=== PATIENT | male | born 1990 | race African-American/Black ===

== ENCOUNTER 2016-10-19 05:30 | Emergency (ER) | payer MEDICAID ==
[2016-10-19 05:41] VITALS: RESP 16; TEMP 98.2
[2016-10-19] MEDS ORDERED: IPRATROPIUM/ALBUTEROL 3 ML DEYVIAL ONE (05:46)
[2016-10-19] MEDS ORDERED: IPRATROPIUM/ALBUTEROL 3 ML DEYVIAL IH ONE (05:47)
[2016-10-19] MEDS ORDERED: ALBUTEROL INH PREPACK MDI TAKEHOME ONE (06:35)
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
[2016-10-19 06:52] VITALS: BP 131/83; PULSE 100; O2SAT 92
== END 2016-10-19 07:07 | disposition home or self-care (01) ==
LOC: EDUNIT#
DX: J45.909 Unspecified asthma, uncomplicated (principal); F17.200 Nicotine dependence, unspecified, uncomplicated

== ENCOUNTER 2016-11-01 17:44 | Inpatient (IN) | payer MEDICAID ==
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
[2016-11-01] MEDS ORDERED: ALBUTEROL 3 ML DEYVIAL IH ONE ×2 (18:12→20:49)
[2016-11-01] MEDS ORDERED: methylPREDNISolone SOD SUCC 125 MG/2 ML VIAL IVP ONE (18:12)
[2016-11-01] MEDS ORDERED: IPRATROPIUM/ALBUTEROL 3 ML DEYVIAL IH ONE (18:12)
--- NOTE | 2016-11-01 19:52 | CPEKG ---
Heart Rate: 92 RR Interval: 652 P-R Interval: 164 QRSD Interval: 104 QT Interval: 408 QTC Interval: 505 P Afton: 117 QRS A[place]on: 89 T Wave A[place]on: 47 EKG Severity - ABNORMAL ECG - EKG Impression: SINUS RHYTHM EKG Impression: PROLONGED QT INTERVAL Electronically Signed By: Hayden Kapoor 01-Nov-2016 20:21:48
[2016-11-01 21:02] LABS: % IMMATURE GRANULYOCYTES 0.2 % (0.0-1.1); ABSOLUTE IMMATURE GRANULOCYTES 0.02 10^3/uL (0.00-0.10); ADD DIFF? NO; ADD MORPH? NO; ADD SCAN? NO; ATYPICAL LYMPHOCYTE FLAG 20 (0-99); FRAGMENT RBC FLAG 0 (0-99); HEMOGLOBIN 16.8 g/dL (13.7-17.5); LEFT SHIFT FLG 10 (0-99); LIPEMIA HEMOLYSIS FLAG 90 (0-99); MEAN CELL HEMOGLOBIN 30.3 pg (27.9-34.1); MEAN CELL HEMOGLOBIN CONCENTR. 34.3 g/dL (32.4-36.7); MEAN CELL VOLUME 88.3 fL (81.5-99.8); MEAN PLATELET VOLUME 9.9 fL (8.7-11.7); PLATELET CLUMPS FLAG 0 (0-99); PLATELET COUNT 310 10^3/uL (150-400); RED BLOOD CELL COUNT 5.55 10^6/uL (4.40-6.38); RED CELL DISTRIBUTION WIDTH 12.6 % (11.5-15.2)
[2016-11-01 21:07] LABS: ANION GAP 13 mEq/L (8-16); CALCIUM 9.3 mg/dL (8.5-10.4); CARBON DIOXIDE 22 mEq/l (22-31); CHLORIDE 99 mEq/L (97-110); GLOMERULAR FILTRATION RATE > 60; GLUCOSE 85 mg/dL (70-100); POTASSIUM 4.1 mEq/L (3.5-5.2); SODIUM 134 mEq/L (134-144)
[2016-11-01] MEDS ORDERED: ONDANSETRON 4 MG/2 ML VIAL IVP PRN (21:24)
[2016-11-01] MEDS ORDERED: ACETAMINOPHEN 325 MG TAB PO PRN (21:24)
[2016-11-01] MEDS ORDERED: ONDANSETRON DISINTEGRATING 4 MG TAB PO PRN (21:24)
[2016-11-01] MEDS ORDERED: ALBUTEROL 3 ML DEYVIAL IH PRN (21:24)
--- NOTE | 2016-11-01 22:07 | GHP ---
[f rep st] HISTORY AND PHYSICAL DATE OF ADMISSION: 11/01/2016 CHIEF COMPLAINT: Shortness of breath. HISTORY OF PRESENT ILLNESS: This is a 26-year-old male, with no significant past medical history, w ho presented initially to the emergency department 10/19/2016, with complaints of shortness of breat h, was worked up for viral URI, discharged with prednisone and albuterol MDI. Patient did not fill the prednisone script, but did use the MDI. He reports over the course of the last 2 weeks progress ing shortness of breath with exertion to the point that he was only able to take a couple of steps t sherly without feeling winded. Does endorse a very productive cough, which has remained stable, and i s productive of sputum, but slightly yellow. Patient denies any subjective fevers or chills or know n sick contacts. Does report some myalgias in his lower extremities. Denies any nausea or vomiting , but has had anorexia. Denies diarrhea, dysuria, hematuria, or lower extremity edema. PAST MEDICAL HISTORY: 1. Polysubstance abuse, including heroin, marijuana, and alcohol. 2. Tobacco abuse. SOCIAL HISTORY: Patient is smokes marijuana throughout the day. Reports smoking on average 5-6 cig arettes a day. FAMILY HISTORY: Positive for alcoholism. REVIEW OF SYSTEMS: A 10-point review of systems is negative with the exception of that reported in the HPI. PHYSICAL EXAMINATION: VITAL SIGNS: Blood pressure 131/86, heart rate 103, respiratory rate 20, 86% on room air, 36.5. GENERAL: This is a healthy-appearing young male, in mild distress. HEENT: No table for dry mucous membranes. Eyes: Negative for any icterus. CARDIAC: Patient is tachycardic, but regular. PULMONARY: He is diffusely wheezy on anterior and posterior auscultation. GASTROINT ESTINAL: Positive bowel sounds. ABDOMEN: Soft and nontender. MUSCULOSKELETAL: Negative for any lower extremity edema. SKIN: Negative for any rashes. NEUROLOGIC: Patient is alert and oriented x3. PSYCHIATRIC: He is pleasant and cooperative on interview and examination. DATA: White count 8.3. Sodium 135, creatinine 105. Chest x-ray, which I personally reviewed and i nterpreted, shows what Radiology describes as resolving streaky opacities consistent with airways di sease. ASSESSMENT AND PLAN: This is a 26-year-old male, presenting with shortness of breath. 1. Acute asthma exacerbation. Suspect likely a viral trigger, as patient does not have a lobular i nfiltrate on chest x-ray, leukocytosis, or fever. We will treat with inhaled albuterol, schedule Du oNebs and steroids. Optimistic the patient will turn the corner overnight. Will not treat at this time empirically with antibiotics. Have sent influenza. Will follow patient's clinical status. 2. Polysubstance abuse. The patient is still actively using consistent marijuana; however, denies other illicit drugs at this time. 3. Tobacco abuse. I did group therapy counselor the patient at length regarding the importance of abstinence from tobacco. 4. Prophylaxis. Patient is ambulating. DIET: Regular. DISPOSITION: I expect in less than 2 midnights if the patient responds well to conservative therapy and supportive care. I discussed the case with the emergency room physician. Patient will be tria ged to a medical-surgical floor for care. /[id number]/MODL
[2016-11-02 05:23] LABS: ANION GAP 14 mEq/L (8-16); CALCIUM 9.5 mg/dL (8.5-10.4); CARBON DIOXIDE 23 mEq/l (22-31); CHLORIDE 103 mEq/L (97-110); GLOMERULAR FILTRATION RATE > 60; GLUCOSE 107 mg/dL (70-100); POTASSIUM 4.9 mEq/L (3.5-5.2); SODIUM 140 mEq/L (134-144)
[2016-11-02] MEDS: IPRATROPIUM/ALBUTEROL 3 ML DEYVIAL IH SCH ×3 (05:25→15:24)
[2016-11-02] MEDS ORDERED: predniSONE 20 MG TAB PO SCH (09:00)
[2016-11-02] MEDS ORDERED: ALBUTEROL 60 PUFFS/8 GM MDI IH PRN (12:53)
[2016-11-02] MEDS ORDERED: BUDESONIDE 180 MCG MDI IH SCH (13:00)
[2016-11-02] MEDS ORDERED: ALBUTEROL 200 PUFFS/18 GM MDI IH PRN (14:51)
[2016-11-02 16:05] VITALS: BP 122/72; PULSE 82; RESP 14; TEMP 98.4; O2SAT 92
--- NOTE | 2016-11-02 16:39 | PDDCSUM ---
Discharge Summary Discharge Summary: DISCHARGE DIAGNOSES: -Acute asthma exacerbation, 1st ever episode of asthma -Suspected viral respiratory infection HOSPITAL COURSE SUMMARY: this patient who had started off with typical viral respiratory sending infection symptoms eventually became short of breath and found himself to be wheezing. He came into the hospital had examination findings and symptoms strongly suggestive of acute asthma. He was treated with bronchodilators and responded quite promptly to this treatment. He was therefore treated with ongoing bronchodilators and steroids and his symptoms this time largely resolved and he has only a minor wheezing at this point. There is no evidence of bacterial infection. He is given extensive education on the nature at of asthma including the inflammatory response as well as the bronchospastic in mucosal responses and the rationale for treating with bronchodilators and steroids as well as other anti-inflammatory mediated. He understands all this very well. He also knows to watch for anything he might be allergic to, get flu shots annually, get pneumonia vaccines, and to watch for any other potential triggers. He does not have a primary care physician at this time is referred to [facility] where he will follow up in 3-5 days depending on how he is doing. MEDICATION CHANGES: Albuterol 2 puffs every 4 hours as needed Pulmicort inhaler 2 puffs twice daily FOLLOW-UP PLAN: [facility] next week Greater than 35 minutes bedside and care coordination time today
== END 2016-11-02 17:10 | disposition home or self-care (01) | DRG 203 ==
LOC: OBSVTOIN 21:24 → F3E 21:50
PROVIDERS: ADMIT Hospitalist; ATTEND Hospitalist
DX: J45.901 Unspecified asthma with (acute) exacerbation (principal); J06.9 Acute upper respiratory infection, unspecified; R06.00 Dyspnea, unspecified; Z72.0 Tobacco use; F12.90 Cannabis use, unspecified, uncomplicated
CPT/HCPCS: 96374